=== PATIENT | female | born 1985 | race Caucasian/White ===

== ENCOUNTER 2017-10-12 15:08 | Emergency (ER) | payer OTHER, MEDICAID ==
[2017-10-12] MEDS: KETOROLAC 30 MG INJ IM (18:54)
[2017-10-12] MEDS: ACETAMINOPHEN 325 MG TAB PO (18:54)
[2017-10-12 19:05] LABS: URINE BLOOD (Dip) POC 2+ (NEGATIVE); URINE GLUCOSE (Dip) POC Negative (NEGATIVE); URINE KETONES (Dip) POC Negative (NEGATIVE); URINE LEUKOCYTE EST (Dip) POC 1+ (NEGATIVE); URINE NITRITE (Dip) POC Negative (NEGATIVE); URINE TOTAL PROTEIN POC Trace (NEGATIVE)
[2017-10-12 19:05] LABS: URINE PH (Dip) POC 5.5 (5.0-8.5)
[2017-10-12 19:47] LABS: CANNABINOIDS Negative (NEGATIVE)
[2017-10-12 19:54] LABS: BARBITURATES Negative (NEGATIVE); BENZODIAZEPINES Positive (NEGATIVE); COCAINE Negative (NEGATIVE); OPIATES Positive (NEGATIVE)
[2017-10-12 19:59] LABS: AMPHETAMINE/METHAMPHETAMINE Positive (NEGATIVE)
== END 2017-10-12 19:21 | disposition left against medical advice (07) ==
LOC: FTE 15:08
DX: M54.2 Cervicalgia (principal)
CPT/HCPCS: 80307; 81003; 96372; 99284-25

== ENCOUNTER 2017-10-27 17:57 | Emergency (ER) | payer OTHER ==
[2017-10-27] MEDS: ACETAMINOPHEN 325 MG TAB PO (19:21)
[2017-10-27] MEDS: predniSONE 20 MG TAB PO (19:21)
[2017-10-27] MEDS: KETOROLAC 15 MG INJ IM (19:24)
== END 2017-10-27 20:50 | disposition home or self-care (01) ==
LOC: FTE 17:57
DX: M54.2 Cervicalgia (principal)
CPT/HCPCS: 72040; 81025; 96372; 99284-25

== ENCOUNTER 2018-05-31 09:51 | Emergency (ER) | payer OTHER | END 2018-05-31 11:27 | disposition home or self-care (01) | LOC: E/R 09:51 | DX: F41.9 Anxiety disorder, unspecified (principal) | CPT/HCPCS: 99282; Z7502 ==

== ENCOUNTER 2018-07-15 05:05 | Inpatient (IN) | payer OTHER ==
[2018-07-15] MEDS ORDERED: CARBOPROST 250 MCG INJ IM (05:30)
[2018-07-15] MEDS ORDERED: METHYLERGONOVINE 0.2 MG INJ IM (05:30)
[2018-07-15] MEDS ORDERED: OXYTOCIN 30 UNITS/LR 500 ML IV ×3 (05:30)
[2018-07-15] MEDS ORDERED: IBUPROFEN 600 MG TAB PO (05:30)
[2018-07-15] MEDS ORDERED: MISOPROSTOL 200 MCG TAB PR (05:30)
[2018-07-15] MEDS ORDERED: LIDOCAINE 1% (MPF) 30 ML INJ INJ (05:30)
[2018-07-15] MEDS: LORAZEPAM 1 MG TAB PO (06:00)
[2018-07-15] MEDS: LACTATED RINGER'S 1,000 ML IV (06:36)
[2018-07-15] MEDS: MAGNESIUM SULFATE 4 GM/100 ML 100 ML IV (06:37)
[2018-07-15] MEDS: VANCOMYCIN 1 GM (PMX) 250 ML IVPB (06:43)
[2018-07-15] MEDS: LORAZEPAM 2 MG INJ IV (06:58)
[2018-07-15] MEDS: MAGNESIUM SULFATE 20 GM/500 ML 500 ML IV ×2 (07:17→16:46)
[2018-07-15] MEDS: BETAMET NA PHOS/AC(6 MG/ML) 2 ML INJ SYG IM ×2 (07:19→17:29)
[2018-07-15] MEDS: morphine 4 MG/ML VIAL IV (08:27)
[2018-07-15 08:43] LABS: ADD UMIC YES; UR ASCORBIC ACID NEGATIVE (NEGATIVE); UR BACTERIA FEW /HPF (NONE SEEN); UR BILIRUBIN (Dip) NEGATIVE (NEGATIVE); UR BLOOD (Dip) 2+ mg/dL (NEGATIVE); UR CLARITY CLOUDY (CLEAR); UR COLOR YELLOW (YELLOW); UR GLUCOSE (Dip) NEGATIVE (NEGATIVE); UR KETONES (Dip) TRACE mg/dL (NEGATIVE); UR LEUKOCYTE ESTERASE (Dip) 2+ Leu/ul (NEGATIVE); UR NITRITE (Dip) NEGATIVE (NEGATIVE); UR RBC > 182 /HPF (0-5); UR SPECIFIC GRAVITY (Dip) 1.013 (1.003-1.030); UR TOTAL PROTEIN (Dip) 1+ mg/dl (NEGATIVE); UR UROBILINOGEN (Dip) NEGATIVE (NEGATIVE); UR WBC 30 /HPF (0-5)
[2018-07-15 09:22] LABS: BARBITURATES Negative (NEGATIVE); BENZODIAZEPINES Negative (NEGATIVE); CANNABINOIDS Negative (NEGATIVE); COCAINE Negative (NEGATIVE)
[2018-07-15 09:28] LABS: OPIATES Positive (NEGATIVE)
[2018-07-15 09:31] LABS: ADD MAN DIFF? NO
[2018-07-15 09:35] LABS: WHITE BLOOD COUNT 21.5 10^3/ul (4.8-10.8)
[2018-07-15 09:35] LABS: BASOPHIL # 0.1 10^3/ul (0.0-0.1); BASOPHILS % 0.4 % (0.0-2.0); EOSINOPHILS % 0.1 % (0.0-7.0); HEMATOCRIT 29.6 % (37.0-47.0); LYMPHOCYTES # 1.1 10^3/ul (0.8-2.9); LYMPHOCYTES % 4.9 % (15.0-51.0); MEAN CORPUSCULAR HEMOGLOBIN 22.8 pg (29.0-33.0); MEAN CORPUSCULAR HGB CONC 30.4 g/dl (32.0-37.0); MEAN CORPUSCULAR VOLUME 74.9 fl (82.0-101.0); MEAN PLATELET VOLUME 9.5 fl (7.4-10.4); MONOCYTE # 0.9 10^3/ul (0.3-0.9); MONOCYTES % 4.1 % (0.0-11.0); NEUTROPHIL # 19.2 10^3/ul (1.6-7.5); NEUTROPHILS % 89.3 % (39.0-77.0); NUCLEATED RED BLOOD CELLS% 0.1 /100WBC (0.0-0.0); PLATELET COUNT 319 10^3/UL (140-415); RED BLOOD COUNT 3.95 10^6/ul (4.20-5.40); RED CELL DISTRIBUTION WIDTH 15.3 % (11.5-14.5)
[2018-07-15 09:36] LABS: AMPHETAMINE/METHAMPHETAMINE POSITIVE (NEGATIVE)
[2018-07-15 09:58] LABS: INR 0.88; PT RATIO 0.9
[2018-07-15 09:59] LABS: PARTIAL THROMBOPLASTIN TIME 27.7 Sec (23.0-35.0)
[2018-07-15 10:19] LABS: ALANINE AMINOTRANSFERASE 13 IU/L (13-69); ALBUMIN 3.1 g/dl (3.3-4.9); ALBUMIN/GLOBULIN RATIO 0.93; ALKALINE PHOSPHATASE 259 IU/L (42-121); ANION GAP 10 (5-13); ASPARTATE AMINO TRANSFERASE 26 IU/L (15-46); BILIRUBIN,INDIRECT 0.4 mg/dl (0-1.1); BILIRUBIN,TOTAL 0.4 mg/dl (0.2-1.3); BLOOD UREA NITROGEN 5 mg/dl (7-20); CALCIUM 8.1 mg/dl (8.4-10.2); CARBON DIOXIDE 22 mmol/L (21-31); CHLORIDE 103 mmol/L (97-110); CREATININE 0.56 mg/dl (0.44-1.00); Estimated GFR > 60 mL/min (>60); GLUCOSE 111 mg/dl (70-220); POTASSIUM 3.5 mmol/L (3.5-5.1); SODIUM 135 mmol/L (135-144); TOTAL PROTEIN 6.4 g/dl (6.1-8.1)
[2018-07-15 12:56] LABS: MAGNESIUM 4.9 mg/dl (1.7-2.5)
[2018-07-15 13:19] LABS: HIV 1&2 ANTIBODY NEGATIVE (NEGATIVE)
[2018-07-15 13:27] LABS: HEPATITIS B SURFACE ANTIGEN NEGATIVE (NEGATIVE)
[2018-07-15] MEDS ORDERED: ACETAMINOPHEN 500 MG TAB PO (13:49)
[2018-07-15] MEDS: AZITHROMYCIN 500MG/NS (PMX) 250 ML IVPB (14:45)
[2018-07-15] MEDS ORDERED: LORAZEPAM 2 MG INJ IV (16:00)
[2018-07-15] MEDS: morphine 2 MG INJ IV (16:13)
[2018-07-15 16:58] LABS: RAPID PLASMA REAGIN NONREACTIVE (NR)
[2018-07-16 11:26] LABS: RUBELLA ANTIBODY - IGG <0.90 index
[2018-07-16 12:13] LABS: RUBELLA ANTIBODY - IGM <20.00 AU/mL
== END 2018-07-15 18:00 | disposition left against medical advice (07) | DRG 831 ==
LOC: OBT 05:05 → L-D 05:05 → OBT 05:15 → L-D 05:15
DX: O42.913 Preterm premature rupture of membranes, unspecified as to length of time between rupture and onset of labor, third trimester (principal); O60.03 Preterm labor without delivery, third trimester; O99.323 Drug use complicating pregnancy, third trimester; O23.43 Unspecified infection of urinary tract in pregnancy, third trimester; F15.90 Other stimulant use, unspecified, uncomplicated; F11.988 Opioid use, unspecified with other opioid-induced disorder; O09.33 Supervision of pregnancy with insufficient antenatal care, third trimester; Z3A.33 33 weeks gestation of pregnancy
CPT/HCPCS: 76815; 76818; 80053; 80307; 81001; 83735; 85025; 85460; 85610; 85730; 86592; 86703; 86762; 86850; 86900; 86901; 87086; 87340